=== PATIENT | female | born 1980 | race Caucasian/White ===

== ENCOUNTER 2016-12-04 02:13 | Inpatient (IN) | payer OTHER ==
[2016-12-04 03:15] LABS: Hematocrit 40 % (35-47); Hemoglobin 13.4 g/dl (12.0-16.0); Mean Corpuscular HGB Conc 33 g/dl (31-36); Mean Corpuscular Hemoglobin 30 pg (27-31); Mean Corpuscular Volume 91 fL (80-97); Mean Platelet Volume 8 um3 (7.4-10.4); Red Blood Count 4.39 10^6/ul (4.0-5.4); Red Cell Distribution Width 13 % (10.5-15); White Blood Count 14.1 10^3/ul (3.5-10.8)
[2016-12-04 03:18] LABS: Urine Bacteria 1+ (Absent); Urine Bilirubin Negative (Negative); Urine Glucose Negative (Negative); Urine Nitrite Negative (Negative)
[2016-12-04 03:25] LABS: ALT 19 U/L (7-52); AST 24 U/L (13-39); Albumin 4.3 g/dL (3.2-5.2); Alkaline Phosphatase 61 U/L (34-104); Anion Gap 7 mmol/L (2-11); BUN/Creatinine Ratio 24.7 (8-20); Blood Urea Nitrogen 18 mg/dL (6-24); CO2 Carbon Dioxide 23 mmol/L (22-32); Calcium 9.2 mg/dL (8.6-10.3); Chloride 105 mmol/L (101-111); EGFR African American 117.4 (>60); EGFR Non-African American 91.3 (>60); Globulin 3.2 g/dL (2-4); Glucose 104 mg/dL (70-100); Potassium 3.5 mmol/L (3.5-5.0); Sodium 135 mmol/L (133-145); Total Protein 7.5 g/dL (6.4-8.9)
[2016-12-04 03:27] LABS: Benzodiazepine Urine Screen None Detected (None Detect)
[2016-12-04 03:46] LABS: Acetaminophen < 15 mcg/mL; Alcohol < 10 mg/dL (<10); Salicylate < 2.50 mg/dL (<30)
[2016-12-04 03:55] LABS: TSH (Thyroid Stimulating Horm) 3.03 mcIU/mL (0.34-5.60)
[2016-12-04] MEDS ORDERED: Mouth Piece, Nicotine* 1 EACH CARTRIDGE INH PRN (04:05)
[2016-12-04] MEDS ORDERED: Nicotine Inhaler* 10 MG AMP INH PRN (04:05)
[2016-12-04] MEDS ORDERED: LORazepam TAB(*) 1 MG PO ONE (04:07)
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
[2016-12-04] MEDS ORDERED: Sulfamethox/Trimethoprim DS 800/160* TAB PO ONE (05:51)
[2016-12-04] MEDS ORDERED: Nicotine GUM* 2 MG PO PRN (06:46)
[2016-12-04] MEDS ORDERED: Acetaminophen TAB* 325 MG PO PRN (06:46)
[2016-12-04] MEDS ORDERED: Al Hydrox/Mg Hydrox/Simet LIQ* 30 ML UDC PO PRN (06:46)
[2016-12-04] MEDS: Nicotine Inhaler* 10 MG AMP INH PRN ×2 (09:22→20:40)
[2016-12-04] MEDS: Nicotine PATCH 21 MG/24 HR* PATCH TRANSDERM SCH (09:23)
[2016-12-04] MEDS: Vitamin THERAPEUTIC TAB PO SCH (09:23)
[2016-12-04] MEDS ORDERED: Nicotine Patch Removal NOTE PATCH OFF SCH (21:00)
[2016-12-04] MEDS ORDERED: QUEtiapine TAB* 100 MG PO SCH (21:00)
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
[2016-12-05 07:49] VITALS: BP 114/73
[2016-12-05] MEDS: Nicotine PATCH 21 MG/24 HR* PATCH TRANSDERM SCH (09:15)
[2016-12-05] MEDS: Vitamin THERAPEUTIC TAB PO SCH (09:16)
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
== END 2016-12-05 13:15 | disposition home or self-care (01) | DRG 740 ==
LOC: ED 02:13 → BSU 08:20
PROVIDERS: ADMIT Psychiatry & Neurology Psychiatry; ATTEND Psychiatry & Neurology Psychiatry
PROC: 0JQ43ZZ Repair Right Neck Subcutaneous Tissue and Fascia, Percutaneous Approach (ICD-10-PCS; principal; 2016-12-04)
DX: F43.21 Adjustment disorder with depressed mood (principal); S11.91XA Laceration without foreign body of unspecified part of neck, initial encounter; F15.10 Other stimulant abuse, uncomplicated; F12.10 Cannabis abuse, uncomplicated; F60.3 Borderline personality disorder; X78.0XXA Intentional self-harm by sharp glass, initial encounter; Y92.009 Unspecified place in unspecified non-institutional (private) residence as the place of occurrence of the external cause; Z62.810 Personal history of physical and sexual abuse in childhood; F17.210 Nicotine dependence, cigarettes, uncomplicated; Z81.1 Family history of alcohol abuse and dependence; Z81.3 Family history of other psychoactive substance abuse and dependence
CPT/HCPCS: 36415; 80053; 80307; 80320; 80329; 81003; 81015; 84443; 85025; 87077; 87086; 87186; 99222; 99238; A9270-GY; G0480

== ENCOUNTER 2019-09-09 05:01 | Emergency (ER) | payer SELFPAY ==
--- NOTE | 2019-09-09 06:43 | ED ---
Throat Pain/Nasal Congestion - HPI Summary HPI Summary: Patient is a 38-year-old female who presents emergency department for increased dental pain and facial swelling times one day. Patient notes intermittent dental pain but has not seen a dentist in a while. Denies associated symptoms of fever, difficulty swallowing, vomiting. No past medical history. Symptoms are mild in severity. Touching area makes symptoms worse. Nothing makes symptoms better. - History of Current Complaint Chief Complaint: EDDentalPain Time Seen by Provider: 09/09/19 06:13 Hx Obtained From: Patient - Allergies/Home Medications Allergies/Adverse Reactions: Allergies Allergy/AdvReac Type Severity Reaction Status Date / Time gabapentin Allergy Unknown Verified 09/09/19 05:07 Reaction Details penicillin G procaine Allergy Unknown Verified 09/09/19 05:07 Reaction Details PMH/Surg Hx/FS Hx/Imm Hx Previously Healthy: Yes Musculoskeletal History: Reports: Hx Orthopedic Injury - ORIF right calcaneous Neurological History: Reports: Other Neuro Impairments/Disorders - Pt has a history of nerve damage, after breaking her "calcaneous" Psychiatric History: Reports: Hx Anxiety, Hx Eating Disorder, Hx Depression - Surgical History Surgery Procedure, Year, and Place: HYSTERECTOMY, APPENDECTOMY, multiple foot surgeries - Immunization History Date of Tetanus Vaccine: unknown Infectious Disease History: No Infectious Disease History: Denies: Traveled Outside the [place] in Last 30 Days - Family History Known Family History: Positive: None - No family h/o heart disease or dm, Other - There is a family hisotry of blood clots in an aunt. , Non-Contributory Negative: Cardiac Disease, Diabetes - Social History Occupation: Unemployed Lives: With Family Alcohol Use: None Hx Substance Use: No Substance Use Type: Reports: Marijuana, Synthetic Drugs Substance Use Comment - Amount & Last Used: Pt uses Marijuana daily and smokes as much as possible; Pt uses metha occas Hx Tobacco Use: Yes Smoking Status (MU): Heavy Every Day Tobacco Smoker Review of Systems Constitutional: Negative Negative: Fever Positive: Dental Pain Gastrointestinal: Negative All Other Systems Reviewed And Are Negative: Yes Physical Exam Triage Information Reviewed: Yes Vital Signs On Initial Exam: Initial Vitals Temp Pulse Resp BP Pulse Ox 99.3 F 108 16 148/94 100 09/09/19 05:03 09/09/19 05:03 09/09/19 05:03 09/09/19 05:03 09/09/19 05:03 Vital Signs Reviewed: Yes Appearance: Positive: Well-Appearing - Patient lying in bed in no acute distress. Skin: Positive: Warm, Dry Head/Face: Positive: Normal Head/Face Inspection Eyes: Positive: Normal, EOMI, LYN Dental: Positive: Other - Poor dentition throughout. Significant dental decay and fracture noted to the top teeth with surrounding erythema and edema to the gingiva. No drainable abscess. Mild edema to upper face. No swelling of the tongue. No trismus. No submandibular edema. Neck: Positive: Supple, Nontender, No Lymphadenopathy Neurological: Positive: Normal, CN Intact II-III Psychiatric: Positive: Affect/Mood Appropriate Procedures - Sedation Patient Received Moderate/Deep Sedation with Procedure: No Diagnostics - Vital Signs Vital Signs Temp Pulse Resp BP Pulse Ox 09/09/19 05:03 99.3 F 108 16 148/94 100 - Laboratory Lab Statement: Any lab studies that have been ordered have been reviewed, and results considered in the medical decision making process. EENT Course/Dx - Course Course Of Treatment: Center patient on clindamycin. Advised Tylenol or Motrin for pain as directed. Advised patient to follow up with a dentist as soon as possible. Return to the ER symptoms change or worsen. Patient understands and agrees with plan. - Differential Diagnoses Differential Diagnoses: Dental Abscess, Dental Caries - Diagnoses Provider Diagnoses: Dental abscess Discharge ED - Sign-Out/Discharge Documenting (check all that apply): Patient Departure - Discharge Plan Condition: Good Disposition: HOME Prescriptions: Clindamycin Cap(NF) [Clindamycin Cap 300 mg Cap(NF)] 300 mg PO Q6H #40 cap Patient Education Materials: Toothache (ED) Referrals: [facility] [Outside] [facility] [Outside] Additional Instructions: Please schedule an appointment with a dentist as soon as possible Take antibiotic as directed Tylenol or Motrin for pain as directed Apply warm compresses to face Return to ER for fever, increased swelling, vomiting or if concerned - Billing Disposition and Condition Condition: GOOD Disposition: Home
[2019-09-09 07:12] VITALS: BP 131/82
== END 2019-09-09 07:00 | disposition home or self-care (01) ==
LOC: ED 05:01
DX: K04.7 Periapical abscess without sinus (principal); F17.210 Nicotine dependence, cigarettes, uncomplicated; F41.9 Anxiety disorder, unspecified; F32.9 Major depressive disorder, single episode, unspecified; Z88.0 Allergy status to penicillin
CPT/HCPCS: 99282